=== PATIENT | female | born 1985 | race Caucasian/White ===

== ENCOUNTER → 2019-12-06 08:39 | Outpatient (CLI) | payer MEDICAID ==
[2009-05-25 12:46] VITALS: BMI 61.4
--- NOTE | 2019-12-08 10:47 | EC ---
PATIENT:OLMAN LUX DATE OF SERVICE: 12/06/19 SEX: F MEDICAL RECORD: [id number] DATE OF : [birth year] [facility]GE [facility] PATIENT: 34 ADMISSION DATE: 12/06/19 REFERRING PHYSICIAN: INTERPRETING PHYSICIAN: ANGELA GANN MD ECHOCARDIOGRAM REPORT ECHO CHARGES 4 ECHO COMPLETE Date: 12/06/19 CLINICAL DIAGNOSIS: EDEMA ECHOCARDIOGRAPHIC MEASUREMENTS (adult normal given) AC root (d.<3.7cm) 3.2 cm LV Septum d (<1.2 cm> 1.8 cm Valve Excursion 1.4 cm LV Septum (systole) 2.1 cm Left Atria (s.<4.0cm> 4.2 cm LVPW d(<1.2cm) 1.2 cm RV (d.<2.3cm) 2.6 cm LVPW (sytole) 2.7 cm LV diastole(<5.6CM) 4.9 cm MV E-F(>70mm/sec) cm LV systole 3.6 cm LVOT Diameter 1.7 cm MV exc.(>10mm) 1.0 cm Est.ejection fraction (50-75%) % DOPPLER: LVIT cm/sec A 108 cm/sec E 138 cm/sec LA cm/sec RVSP 15 mmHg LVOT 117 cm/sec AOP1/2T m/s Asc. Ao 165 cm/sec RVOT 85 cm/sec RA cm/sec PA 104 cm/sec AV Gradient Peak 10.8 mmHg AV Mean 5.0 mmHg AV Area 1.8 cm MV Gradient Peak 7.8 mmHg MV Mean 5.4 mmHg MV Area cm COMMENTS: Engine Lathe Set Up Operator Tool: [facility] Vacuum Cooker Operator: 3 Dr. Rutledge TAPE# PACS Pericardial Effusion N DATE OF SERVICE: Adequate 2D, color flow imaging, spectral Doppler, and M-mode. LVH is present. LV internal dimension is normal. Wall motion is normal. EF is greater than or equal to 55%. Aortic valve is tricuspid. No evidence of stenosis by Doppler interrogation. Left atrium is mildly dilated at 4.2 cm. Mitral valve shows no prolapse. Trivial MR. Right-side grossly normal. Trivial TR. ECHOCARDIOGRAM REPORT [id number] OLMAN LUX NTS:[id number] Voice Confirmation ID: [id number] DOCUMENT ID: [id number] ANGELA GANN MD at 1047 CC: [id number] DICTATION DATE: 12/07/1941 PROJECTS MANAGER: 12/07/19 1837 DEP CLI 12/06/19 [id number] [place] [address]
== END | disposition home or self-care (01) ==
LOC: D.ECHO 09-13 09:00
PROVIDERS: ATTEND Family Medicine
DX: R60.0 Localized edema (principal)

== ENCOUNTER 2020-08-31 10:30 | Outpatient (CLI) | payer MEDICAID ==
[2009-05-25 12:46] VITALS: BMI 61.4
== END 2020-08-31 23:59 | disposition home or self-care (01) ==
LOC: D.MAMMO 10:30
PROVIDERS: ATTEND Student in an Organized Health Care Education/Training Program
DX: N63.14 Unspecified lump in the right breast, lower inner quadrant (principal); N63.24 Unspecified lump in the left breast, lower inner quadrant